=== PATIENT | male | born 1990 | race Caucasian/White ===

== ENCOUNTER → 2017-02-19 | Outpatient (CLI) | payer OTHER ==
[~2017-02-19] MED LIST: AUGMENTIN 875 M1 TAB PO; CIPRODEX 0.3%-7.5 ML OT; CLARITIN10 MG PO; MEDROL DOSEPAK4 MG PO; MOTRIN800 MG PO; PEPCID20 MG PO; PROAIR HFA0.09 MG/AC IH; VIBRAMYCIN100 MG PO; Zofran4 MG PO
[2017-02-19 12:51] LABS: URINE AMPHETAMINES < 1000 (1000ng/ml); URINE BARBITURATES < 200 (200ng/ml); URINE BENZODIAZEPINES < 200 (200ng/ml); URINE CANNABINOIDS (THC) < 50 (50ng/ml); URINE COCAINE < 300 (300ng/ml); URINE METHADONE < 300 (300ng/ml); URINE OPIATES < 300 (300ng/ml)
[2017-02-19 12:52] LABS: URINE PHENCYCLIDINE < 25 (25ng/ml)
== END | disposition home or self-care (01) ==
LOC: LAB 12:06
PROVIDERS: Pediatrics
DX: Z02.89 Encounter for other administrative examinations (principal); M79.604 Pain in right leg

== ENCOUNTER → 2017-02-28 | Outpatient (CLI) | payer OTHER ==
[2017-02-28 13:14] LABS: BASO # 0.1 10*3/uL (0.0-0.1); BASO % 0.6 % (0.0-1.0); EOS # 0.3 10*3/uL (0.0-0.4); EOS % 3.7 % (1.0-4.0); HEMATOCRIT 45.6 % (42.0-52.0); HEMOGLOBIN 15.7 g/dl (14.0-18.0); LYMPH # 1.7 10*3/uL (1.3-4.4); LYMPH % 20.2 % (27.0-41.0); MEAN CELL VOLUME 86.5 fl (80.0-94.0); MEAN CORPUSCULAR HGB 29.8 pg (27.0-31.0); MEAN CORPUSCULAR HGB CONC 34.4 g/dl (33.0-37.0); MONO # 0.5 10*3/uL (0.1-1.0); MONO % 5.8 % (3.0-9.0); NEUT # 5.7 10*3/uL (2.3-7.9); NEUT % 69.3 % (47.0-73.0); PLATELET COUNT AUTOMATED 209 10*3/uL (130-400); RED BLOOD COUNT 5.27 10*6/uL (4.50-5.90); RED CELL DISTRI WIDTH 12.9 % (0-14.5); WHITE BLOOD COUNT 8.2 10*3/uL (4.8-10.8)
[2017-02-28 13:30] LABS: ALBUMIN 3.5 gm/dl (3.1-4.5); ALKALINE PHOSPHATASE 71 U/L (45-117); BUN 17 mg/dl (7-24); CHLORIDE 107 mmol/L (98-107); CREATININE 1.05 mg/dL (0.70-1.30); POTASSIUM 3.9 mmol/L (3.5-5.1); SGOT/AST 28 IU/L (3-35); SGPT/ALT 36 U/L (12-78); SODIUM 140 mmol/L (136-145); TOTAL PROTEIN 7.3 gm/dL (6.4-8.2)
[2017-03-01 12:09] LABS: EBV NUCLEAR ANTIGEN IGG >600.0 U/mL (0.0-17.9); EPSTEIN-BARR VCA IGM AB <36.0 U/mL (0.0-35.9)
== END | disposition home or self-care (01) ==
LOC: LAB 13:00
PROVIDERS: Pediatrics
DX: B27.90 Infectious mononucleosis, unspecified without complication (principal)

== ENCOUNTER 2017-04-24 19:06 | Emergency (ER) | payer OTHER ==
[~2017-04-24] VITALS: Ht 175.2 cm; Wt 108.9 kg
[2017-04-24] MEDS ORDERED: Tobrex Ophth S2.5 ML OPH (19:17)
== END 2017-04-24 19:36 | disposition home or self-care (01) ==
LOC: ED 19:06
DX: T15.01XA Foreign body in cornea, right eye, initial encounter (principal); X58.XXXA Exposure to other specified factors, initial encounter; Y93.89 Activity, other specified; Y92.89 Other specified places as the place of occurrence of the external cause; Y99.8 Other external cause status; Z91.040 Latex allergy status

== ENCOUNTER 2017-09-02 20:38 | Emergency (ER) | payer OTHER ==
[~2017-09-02] VITALS: Ht 177.8 cm; Wt 117.9 kg
[~2017-09-02 20:38] MED LIST changes: +Tobrex Ophth S2.5 ML OPH
[2017-09-02 21:34] LABS: BASO # 0.1 10*3/uL (0.0-0.1); BASO % 0.9 % (0.0-1.0); EOS # 0.4 10*3/uL (0.0-0.4); EOS % 5.3 % (1.0-4.0); HEMOGLOBIN 15.4 g/dl (14.0-18.0); LYMPH # 1.8 10*3/uL (1.3-4.4); LYMPH % 25.6 % (27.0-41.0); MEAN CELL VOLUME 85.6 fl (80.0-94.0); MEAN CORPUSCULAR HGB 29.3 pg (27.0-31.0); MEAN CORPUSCULAR HGB CONC 34.2 g/dl (33.0-37.0); MONO # 0.6 10*3/uL (0.1-1.0); MONO % 7.9 % (3.0-9.0); NEUT # 4.2 10*3/uL (2.3-7.9); NEUT % 59.9 % (47.0-73.0); PLATELET COUNT AUTOMATED 212 10*3/uL (130-400); RED BLOOD COUNT 5.26 10*6/uL (4.50-5.90); RED CELL DISTRI WIDTH 12.7 % (0-14.5)
[2017-09-02 21:51] LABS: ALBUMIN 3.7 gm/dl (3.1-4.5); ALKALINE PHOSPHATASE 72 U/L (45-117); BUN 17 mg/dl (7-24); CHLORIDE 106 mmol/L (98-107); CREATININE 1.03 mg/dL (0.70-1.30); POTASSIUM 3.7 mmol/L (3.5-5.1); SGOT/AST 30 IU/L (3-35); SGPT/ALT 44 U/L (12-78); SODIUM 140 mmol/L (136-145); TOTAL PROTEIN 7.4 gm/dL (6.4-8.2)
[2017-09-02] MEDS ORDERED: OMNICEF300 MG PO (22:27)
== END 2017-09-02 23:37 | disposition home or self-care (01) ==
LOC: ED 20:38
PROVIDERS: Nurse Practitioner Family
DX: H65.93 Unspecified nonsuppurative otitis media, bilateral (principal)